=== PATIENT | female | born 1995 | race Two or more races ===

== ENCOUNTER 2017-07-07 14:36 | Emergency (ER) | payer BC ==
[~2017-07-07] VITALS: Ht 167.6 cm; Wt 68.0 kg
[2017-07-07 14:36] VITALS: BP 108/69
[2017-07-07] MEDS ORDERED: LORAZEPAM INJ 2 MG/ML VIAL IV ONE (16:30)
[2017-07-07] MEDS ORDERED: LEVETIRACETAM (500MG) 500 MG in IV NS 0.9% 100 ML IV SCH (16:30)
== END 2017-07-07 16:18 | disposition home or self-care (01) ==
LOC: ER 14:39
DX: S09.8XXA Other specified injuries of head, initial encounter (principal); W22.8XXA Striking against or struck by other objects, initial encounter; Y93.89 Activity, other specified; Y92.89 Other specified places as the place of occurrence of the external cause; Y99.8 Other external cause status
CPT/HCPCS: 70450-TC; A4606; J1953; J7030; Z7610